=== PATIENT | female | born 1960 | race African-American/Black ===

== ENCOUNTER 2018-06-02 17:59 | Observation (INO) ==
[2018-06-02] MEDS ORDERED: DICYCLOMINE 20 MG/2 ML AMP IM ONE (18:26)
[2018-06-02] MEDS ORDERED: METOCLOPRAMIDE 10 MG/2 ML VIAL IV STA (18:26)
[2018-06-02 18:47] LABS: Basophils % 0.5 % (0.0-0.8); Eosinophils # 0.2 10*3/uL (0.0-0.87); Eosinophils % 2.2 % (0.00-10.9); Hematocrit 37.2 VOL% (35.7-47.0); Hemoglobin 11.4 GM/DL (12.0-16.0); Immature Granulocytes % 0.5 %; Immature Granulocytes Absolute 0.04 #; Lymphocytes # 2.9 10*3/uL (1.4-4.0); Lymphocytes % 38.3 % (21.3-54.2); Mean Corpuscular HGB Conc 30.6 GM/DL (32-36); Mean Corpuscular Hemoglobin 27 PG (27-34); Mean Corpuscular Volume 87.3 FL (87-102); Mean Platelet Volume 9.6 FL (9.6-12.0); Monocytes # 0.5 10*3/uL (0.11-0.8); Monocytes % 6.8 % (1.7-12.7); Neutrophils % 51.7 % (38.7-73.9); Platelet Count 329 T/CUMM (130-400); Red Blood Count 4.26 MC/CUMM (3.8-5.5); Red Cell Distribution Width 14.8 % (9.3-17.3); White Blood Count 7.7 T/CUMM (4-12)
[2018-06-02 18:54] LABS: Apearance,Urine Slightly Hazy (Clear); Bilirubin,Urine Negative (Negative); Blood, Urine Negative (Negative); Glucose,Urine (UA) Negative (Negative); Ketones,Urine Negative (Negative); Mucus,Urine Occasional /LPF (Occasional); Nitrite,Urine Negative (Negative); Protein,Urine Negative; RBC,Urine 3 /HPF (0-4); Squamous Epithelial Cell,Urine Occasional /HPF (0-10); Urine Color Yellow (Yellow); Urine Specific Gravity 1.024 (1.001-1.035); Urine Urobilinogen < 2.0 EU/DL (0.2-1.0); WBC,Urine 1 /HPF (0-6)
[2018-06-02 18:58] LABS: PT Patient Result 10.8 SECS; Partial Thromboplastin Time 26.7 SECS (0-40)
[2018-06-02] MEDS ORDERED: PHENAZOPYRIDINE 95 MG TABLET PO STA (19:09)
[2018-06-02] MEDS ORDERED: AMPICILLIN/SULBACTAM 3,000 MG in SODIUM CHLORIDE 0.9% 100 ML IV STA (19:09)
[2018-06-02 19:13] LABS: Alanine Aminotransferase 17 U/L (13-56); Albumin 3.3 G/DL (3.4-5.0); Alkaline Phosphatase 135 U/L (45-117); Amylase 45 U/L (25-115); Aspartate Amino Transferase 15 U/L (0-37); Bilirubin,Total < 0.39 MG/DL (0.2-1.0); Blood Urea Nitrogen 14 MG/DL (7-18); Glucose 98 MG/DL (74-106); Osmolality,Calculated 283.1 MOS/KG (273-304); Potassium 3.8 MMOL/L (3.5-5.1); Sodium 142 MMOL/L (136-145); Total Protein 8.6 G/DL (6.4-8.3)
[2018-06-02] MEDS ORDERED: AMPICILLIN/SULBACTAM 3,000 MG VIAL ONE (19:13)
[2018-06-02] MEDS ORDERED: PHENAZOPYRIDINE 95 MG TABLET ONE (19:13)
[2018-06-02 19:14] LABS: Troponin I 0.112 NG/ML (0.00-0.045)
[2018-06-02 19:17] LABS: Lactic Acid 1.7 MMOL/L (0.4-2.0)
[2018-06-02] MEDS ORDERED: PANTOPRAZOLE 40 MG TABLET PO ONE (20:40)
[2018-06-02 20:43] LABS: Risk Ratio 4.73; VLDL CHOLESTEROL 24.6 MG/DL
[2018-06-02] MEDS ORDERED: hydrALAZINE 20 MG/1 ML VIAL IV PRN (20:53)
[2018-06-02] MEDS ORDERED: MEPERIDINE 50 MG TABLET PO PRN (21:09)
[2018-06-02 22:42] LABS: Hepatitis A Ab IgM Quant 0.31 Index; Hepatitis A Ab IgM Result Negative (Negative); Hepatitis B Core IgM Quant 0.14 Index; Hepatitis B Core IgM Result Negative (Negative); Hepatitis B Surface Ag Quant < 0.10 Index; Hepatitis B Surface Ag Result Negative (Negative); Hepatitis C Virus Ab Quant 0.09 Index; Hepatitis C Virus Ab Result Negative (Negative)
[2018-06-02] MEDS ORDERED: tiZANidine 4 MG TABLET PO PRN (23:02)
[2018-06-03] MEDS: ENOXAPARIN 100 MG/ML SYRINGE SUBCUT SCH ×2 (00:36→08:56)
[2018-06-03] MEDS: SODIUM CHLORIDE 0.9% 1,000 ML IV SCH ×3 (00:38→17:40)
[2018-06-03 01:53] LABS: Basophils % 0.3 % (0.0-0.8); Eosinophils # 0.2 10*3/uL (0.0-0.87); Eosinophils % 2.5 % (0.00-10.9); Hematocrit 35.1 VOL% (35.7-47.0); Hemoglobin 10.5 GM/DL (12.0-16.0); Immature Granulocytes % 0.1 %; Immature Granulocytes Absolute 0.01 #; Lymphocytes # 3.6 10*3/uL (1.4-4.0); Lymphocytes % 50.7 % (21.3-54.2); Mean Corpuscular HGB Conc 29.9 GM/DL (32-36); Mean Corpuscular Hemoglobin 26 PG (27-34); Mean Corpuscular Volume 86.5 FL (87-102); Mean Platelet Volume 9.7 FL (9.6-12.0); Monocytes # 0.6 10*3/uL (0.11-0.8); Monocytes % 8.1 % (1.7-12.7); Neutrophils # 2.8 10*3/uL (1.4-7.4); Neutrophils % 38.3 % (38.7-73.9); Platelet Count 295 T/CUMM (130-400); Red Blood Count 4.06 MC/CUMM (3.8-5.5); Red Cell Distribution Width 14.9 % (9.3-17.3); White Blood Count 7.2 T/CUMM (4-12)
[2018-06-03 02:08] LABS: Alanine Aminotransferase 14 U/L (13-56); Albumin 2.8 G/DL (3.4-5.0); Alkaline Phosphatase 120 U/L (45-117); Aspartate Amino Transferase 13 U/L (0-37); Bilirubin,Total < 0.39 MG/DL (0.2-1.0); Blood Urea Nitrogen 12 MG/DL (7-18); Calcium 8.3 MG/DL (8.5-10.1); Glucose 95 MG/DL (74-106); Osmolality,Calculated 285.8 MOS/KG (273-304); Potassium 3.7 MMOL/L (3.5-5.1); Sodium 144 MMOL/L (136-145); Total Protein 7.4 G/DL (6.4-8.3)
[2018-06-03 02:13] LABS: Troponin I 0.115 NG/ML (0.00-0.045)
[2018-06-03 03:43] LABS: Band Neutrophils 4 % (0-10); Eosinophils 3 % (0-10); Lymphocytes 50 % (20-55); Platelet Estimate Normal; Segmented Neutrophils 36 % (50-85); Total Cells Counted 100
[2018-06-03 07:26] LABS: Troponin I 0.137 NG/ML (0.00-0.045)
[2018-06-03] MEDS: GABAPENTIN 600 MG TABLET PO SCH ×3 (08:55→17:38)
[2018-06-03] MEDS ORDERED: PANTOPRAZOLE 40 MG TABLET PO SCH (09:00)
[2018-06-03] MEDS ORDERED: METOPROLOL SUCCINATE XL 25 MG TABLET PO SCH (09:00)
[2018-06-03] MEDS ORDERED: ASPIRIN 325 MG TABLET PO SCH (09:00)
[2018-06-03] MEDS ORDERED: hydroCHLOROthiazide 12.5 MG CAPSULE PO SCH (09:00)
[2018-06-03] MEDS ORDERED: NON-FORMULARY MEDICATION (Mirabegron [Myrbetriq] 50 MG) PO SCH (09:00)
[2018-06-03] MEDS ORDERED: ROSUVASTATIN 20 MG TABLET PO SCH (09:00)
[2018-06-03] MEDS ORDERED: POTASSIUM CHLORIDE RIDER 10 MEQ in PREMIX 1 EACH IV PRN (10:05)
[2018-06-03] MEDS ORDERED: DIAZEPAM 5 MG TABLET PO ONE (10:05)
[2018-06-03] MEDS ORDERED: MAGNESIUM SULF RIDER 2 GM in PREMIX 1 EACH IV PRN (10:05)
[2018-06-03] MEDS ORDERED: diphenhydrAMINE CAP 25 MG CAPSULE PO ONE (10:05)
[2018-06-03] MEDS ORDERED: HYDROmorphone 2 MG/1 ML VIAL ONE (10:49)
[2018-06-03] MEDS ORDERED: MIDAZOLAM 2 MG/2 ML VIAL ONE (10:49)
[2018-06-03] MEDS ORDERED: HEPARIN/NACL 0.9% 2 UNITS/ML 1,000 ML IV ONE (10:49)
[2018-06-03] MEDS ORDERED: LIDOCAINE 1% 20 ML VIAL ONE (10:49)
[2018-06-03] MEDS ORDERED: VERAPAMIL 5 MG/2 ML VIAL ONE (10:49)
[2018-06-03] MEDS ORDERED: NITROGLYCERIN DRIP 50 MG/250 ML BOTTLE IV ONE (10:49)
[2018-06-03 17:40] VITALS: BP 148/78
== END 2018-06-03 18:22 | disposition home or self-care (01) ==
LOC: N.ED 17:59 → N.EDINP 17:59 → SUATTDRO 20:21 → N.TELEN 21:17
PROVIDERS: ADMIT Internal Medicine Infectious Disease; ATTEND Internal Medicine
PROC: CLCCHCL (ICD-10-PCS; 2018-06-03 11:15)